=== PATIENT | female | born 1960 | race Caucasian/White ===

== ENCOUNTER 2018-07-24 20:53 | Inpatient (IN) | payer OTHER ==
[~2018-07-24] VITALS: Ht 160 cm; Wt 92.7 kg
[2018-07-24 20:55] VITALS: Ht 160 cm; Wt 92.7 kg
[2018-07-24 21:17] LABS: BASOPHIL % 0.5 % (0-2); PLATELET COUNT 237 x10^3mcL (130-400); RED CELL DISTRIBUTION WIDTH 14.5 % (11.5-14.5)
[2018-07-24] MEDS ORDERED: MAXZIDE1 TAB (21:18)
[2018-07-24] MEDS ORDERED: TOPROL XL25 MG (21:22)
[2018-07-24 21:26] LABS: UA SPECIFIC GRAVITY 1.015 (1.005-1.035); microscopic required? YES; urine erythrocyte TRACE (NEGATIVE)
[2018-07-24 21:29] LABS: CALCIUM 8.4 mg/dL (8.5-10.1); CARBON DIOXIDE 29.1 mmol/L (21-32); CHLORIDE SERUM 101 mmol/L (98-107); CREATININE SERUM 0.7 mg/dL (0.6-1.0); GFR1 > 60 mL/min; GLUCOSE SERUM 127 mg/dL (74-106); POTASSIUM SERUM 3.3 mmol/L (3.5-5.1); SODIUM SERUM 139 mmol/L (136-145)
[2018-07-24 21:34] LABS: ALBUMIN 3.5 g/dL (3.4-5.0); ALKALINE PHOSPHATASE 91 U/L (46-116); ALT/SGPT 43 U/L (14-59); AST/SGOT 24 U/L (15-37); BILIRUBIN TOTAL 0.3 mg/dL (0.20-1.00); CHOLESTEROL 170 mg/dL (<200); CHOLESTEROL/HDL RATIO 4.6; HDL CHOLESTEROL 37 mg/dL (40-60); LIPASE 118 IU/L (73-393); TOTAL PROTEIN, SERUM 7.6 g/dL (6.4-8.2); TRIGLYCERIDES 121 mg/dL (<150)
[2018-07-24 21:38] LABS: T3 TOTAL 0.98 ng/mL
[2018-07-24 21:56] LABS: FREE T4 0.87 ng/dL (0.76-1.46); FREE THYROXINE INDEX 1.9 ug/dL (1.4-4.5); T4(THYROXINE) 6.2 ug/dL (4.7-13.3)
[2018-07-24 23:08] VITALS: BP 162/80
[2018-07-25 05:12] VITALS: BP 115/57
[2018-07-25 06:26] LABS: CALCIUM 8.3 mg/dL (8.5-10.1); CHLORIDE SERUM 111 mmol/L (98-107); CREATININE SERUM 0.6 mg/dL (0.6-1.0); GFR1 > 60 mL/min; GLUCOSE SERUM 109 mg/dL (74-106); PHOSPHOROUS 3.1 mg/dL (2.5-4.9); POTASSIUM SERUM 4.5 mmol/L (3.5-5.1); SODIUM SERUM 147 mmol/L (136-145)
[2018-07-25 06:43] LABS: BASOPHIL % 0.5 % (0-2); PLATELET COUNT 225 x10^3mcL (130-400)
[2018-07-25 09:15] VITALS: BP 145/72
[2018-07-25 12:11] VITALS: BP 145/72
== END 2018-07-25 13:03 | disposition home or self-care (01) | DRG 640 ==
LOC: ED 20:53 → DU 22:29
PROVIDERS: Family Medicine; Specialist
DX: E86.0 Dehydration (principal); N17.0 Acute kidney failure with tubular necrosis; N39.0 Urinary tract infection, site not specified; G90.8 Other disorders of autonomic nervous system; R55 Syncope and collapse; R73.03 Prediabetes; E87.6 Hypokalemia; I10 Essential (primary) hypertension; E78.5 Hyperlipidemia, unspecified; Z68.35 Body mass index [BMI] 35.0-35.9, adult; Z85.841 Personal history of malignant neoplasm of brain; Z90.710 Acquired absence of both cervix and uterus; Z82.49 Family history of ischemic heart disease and other diseases of the circulatory system; Z80.9 Family history of malignant neoplasm, unspecified
CPT/HCPCS: 83880; 84439; J0696; J7030; Q0092

== ENCOUNTER 2018-11-11 18:18 | Emergency (ER) | payer OTHER ==
[~2018-11-11] VITALS: Ht 162.6 cm; Wt 92.1 kg
[~2018-11-11 18:18] MED LIST: MAXZIDE1 TAB; TOPROL XL25 MG
[2018-11-11 18:39] VITALS: Ht 162.6 cm; Wt 92.1 kg
[2018-11-11 19:34] LABS: BASOPHIL % 0.3 % (0-2); PLATELET COUNT 253 x10^3mcL (130-400); RED CELL DISTRIBUTION WIDTH 13.8 % (11.5-14.5)
[2018-11-11 19:42] LABS: CALCIUM 8.3 mg/dL (8.5-10.1); CARBON DIOXIDE 32.7 mmol/L (21-32); CHLORIDE SERUM 98 mmol/L (98-107); CREATININE SERUM 0.8 mg/dL (0.6-1.0); GFR1 > 60 mL/min; GLUCOSE SERUM 115 mg/dL (74-106); SODIUM SERUM 137 mmol/L (136-145)
[2018-11-11 19:46] LABS: ALBUMIN 3.6 g/dL (3.4-5.0); ALKALINE PHOSPHATASE 109 U/L (46-116); ALT/SGPT 34 U/L (14-59); AST/SGOT 19 U/L (15-37); BILIRUBIN TOTAL 0.25 mg/dL (0.20-1.00); LIPASE 131 IU/L (73-393); TOTAL PROTEIN, SERUM 7.9 g/dL (6.4-8.2)
[2018-11-11 22:15] VITALS: BP 154/88
== END 2018-11-11 22:15 | disposition home or self-care (01) ==
LOC: ED 18:18
PROVIDERS: Emergency Medicine
DX: R42 Dizziness and giddiness (principal); K29.70 Gastritis, unspecified, without bleeding; I10 Essential (primary) hypertension; Z85.841 Personal history of malignant neoplasm of brain
CPT/HCPCS: J2765

== ENCOUNTER 2019-09-28 10:27 | Emergency (ER) | payer OTHER ==
[~2019-09-28] VITALS: Ht 170.2 cm; Wt 90.7 kg
[2019-09-28 10:29] VITALS: Ht 170.2 cm; Wt 90.7 kg
[2019-09-28 11:01] LABS: BASOPHIL % 0.5 % (0-2); PLATELET COUNT 288 x10^3mcL (130-400); RED CELL DISTRIBUTION WIDTH 15.2 % (11.5-14.5)
[2019-09-28 11:17] LABS: CALCIUM 8.8 mg/dL (8.5-10.1); CARBON DIOXIDE 34.1 mmol/L (21-32); CHLORIDE SERUM 106 mmol/L (98-107); CREATININE SERUM 0.7 mg/dL (0.6-1.0); GFR1 > 60 mL/min; GLUCOSE SERUM 100 mg/dL (74-106); POTASSIUM SERUM 3.4 mmol/L (3.5-5.1); SODIUM SERUM 147 mmol/L (136-145)
[2019-09-28 11:21] LABS: ALKALINE PHOSPHATASE 123 U/L (46-116); ALT/SGPT 29 U/L (14-59); AST/SGOT 27 U/L (15-37); BILIRUBIN TOTAL 0.5 mg/dL (0.20-1.00); TOTAL PROTEIN, SERUM 7.2 g/dL (6.4-8.2)
[2019-09-28 11:23] LABS: ALBUMIN 2.9 g/dL (3.4-5.0)
[2019-09-28 11:27] LABS: microscopic required? YES; urine erythrocyte TRACE (NEGATIVE)
[2019-09-28] MEDS ORDERED: COZAAR100 MG PO (11:29)
[2019-09-28] MEDS ORDERED: TRE400 PO (11:30)
[2019-09-28] MEDS ORDERED: HYDROCHLOROTHIA25 MG PO (11:30)
[2019-09-28] MEDS ORDERED: KEPPRA1000 M1 PO (11:31)
[2019-09-28] MEDS ORDERED: AMLODIPINE BESY10 M2 PO (11:32)
[2019-09-28] MEDS ORDERED: ATORVASTATIN CA40 M1 PO (11:33)
[2019-09-28] MEDS ORDERED: NEPHRO-VITE VITA1 EA PO (11:33)
[2019-09-28 11:42] LABS: AMPHETAMINE QUAL UR NONE DETECTED (See below)
[2019-09-28 12:56] VITALS: BP 148/79
== END 2019-09-28 12:56 | disposition short-term general hospital (02) ==
LOC: ED 10:27
PROVIDERS: Emergency Medicine
DX: G93.40 Encephalopathy, unspecified (principal); N39.0 Urinary tract infection, site not specified; I10 Essential (primary) hypertension; Z85.841 Personal history of malignant neoplasm of brain
CPT/HCPCS: 83880; 87804; G0480; J0696; Q0092